=== PATIENT | female | born 1970 | race Caucasian/White ===

== ENCOUNTER 2024-03-03 08:11 | Emergency (ER) | payer BC, SELFPAY ==
[2024-03-03 08:12] VITALS: BP 161/97; PULSE 92; RESP 18; TEMP 36.9; O2SAT 98; BMI 33.4
--- NOTE | 2024-03-03 08:27 | PC.NURSE ---
Dr. Gordillo at [facility] for patient eval
[2024-03-03 08:30] VITALS: BP 146/92; PULSE 96; O2SAT 99
--- NOTE | 2024-03-03 08:35 | ED_ITS ---
Discharge Plan Disposition Patient Disposition: Home, Self-Care Prescriptions Prescriptions: New epinephrine [EpiPen 2-Av] 0.3 mg/0.3 mL auto-injector 0.3 mg IM Q10M PRN (Reason: anaphylaxis) Qty: 2 0RF Rx Instructions: for 2 doses Referrals Follow up/Referrals: Sohail Landeros [Primary Care Provider] - See instructions Activity Restrictions/Add. Instructions Additional Instructions/Restrictions: Your symptoms today were consistent with a systemic allergic reaction and we called anaphylaxis. As discussed please use your epinephrine pens at home if you have a recurrence of your symptoms specifically 32 organ systems involved such as your scan and your mucosal surfaces of your mouth or your respiratory tract like wheezing or shortness of breath. If that happens please call 911 or return to the emergency department. Also as discussed it is possible you will have a biphasic response which could have been many days after today's presentation but is unlikely. Lastly I highly recommend you follow-up with an diesel locomotive crane operator to get specific allergy testing. Clinical Impressions Clinical Impression: Anaphylaxis Print Language Print Language: Bahamian Discharge ED Provider: Jenny Gordillo General Adult HPI General Chief complaint: Allergic Reaction Stated complaint: allergic reaction/swelling in face Time Seen by Provider: 03/03/24 08:14 Mode of Arrival: Ambulatory Source of Information: Patient Limitations: No Limitations Description of Symptoms (Recalled from ER Triage Doc. by RN): c/o swollen face,ears, eyes and scratchy throat that started last night. Unknown if any interactions with new products History of Present Illness HPI narrative: 54-year-old female presenting today with concerns for an allergic reaction. She has a history of hyperlipidemia and prediabetes on rosuvastatin and metformin but no other medications other than vitamin D supplementation. She has no history of anaphylaxis in the past. However today she presents with an urticarial rash as well as swelling in her ears and her face and the mucosal s urface of her lips and scratchy throat. She denies any wheezing shortness of breath any gastrointestinal symptoms or cardiovascular symptoms. Her rash is pruritic she states. Related Data Previous Rx's ?Medication ?Instructions ?Recorded epinephrine 0.3 mg/0.3 mL 0.3 mg (0.3 mL) IM Q10M PRN 03/03/24 injection, auto-injector (EpiPen anaphylaxis #2 ea 2-Av) Allergies Allergy/AdvReac Type Severity Reaction Status Date / Time Sulfa (Sulfonamide Allergy Other Verified 03/03/24 08:27 Antibiotics) [facility] Disclaimer: The information contained in this section may have been updated after the patient was seen, as this information can be updated by other users. Social History Smoking Status: Never smoker alcohol intake: never current occupational status: other Travel in the last 8 weeks: None ROS Obtained: Yes All systems reviewed & no additional complaints except as documented Physical Exam General General appearance: alert ENT ENT exam: Present other (Upper lip and mucosal surface of the lip swollen) Respiratory Respiratory exam: Present normal lung sounds bilaterally Cardiovascular Cardiovascular exam: Present regular rate Neurological Exam Neurological exam: Present alert and oriented X3 Skin Skin exam: Present other (Diffuse and intermittent urticarial rash and swelling on the right side of her face and to her right ear that is edematous) Medical Decision Making Medical Records Screening: Per USPSTF and CDC recommendations, given the prevalence of disease in our region, it is our hospital?s policy to screen for HIV and viral Hepatitis for all patients aged 18 and over and those with ongoing risk factors. Robbie Inquiry Pt receiving controlled substance: No Robbie was queried for this patient: No Vital Signs: 03/03/24 08:12 03/03/24 08:30 Temperature 98.4 F Temperature Source Oral Pulse Rate 96 H Pulse Rate [Left Radial] 92 H Respiratory Rate 18 Blood Pressure 146/92 H Blood Pressure [Right Arm] 161/97 H Blood Pressure Mean 102 Blood Pressure Mean [Right Arm] 118 02 Sat by Pulse Oximetry 98 99 Oxygen Delivery Method Room Air Room Air Orders (Tests/Meds): ED MEDICATIONS Generic Name Dose Route Start Last Admin Trade Name Freq PRN Reason Stop Dose Admin Sodium Chloride 1,000 mls @ 999 mls/hr 03/03/24 08:30 03/03/24 08:38 Sod Chlor 0.9% 1000ml Bag IV 03/03/24 09:30 999 mls/hr .Q1H1M KALI Administration Sodium Chloride 8 ml 03/03/24 08:29 03/03/24 08:37 Sodium Chloride 0.9% 10ml Vial IV 04/02/24 08:28 8 ml NEEDED PRN Administration dilute pepcid Discontinued Medications Generic Name Dose Route Start Last Admin Trade Name Freq PRN Reason Stop Dose Admin Dexamethasone Sodium Phosphate 10 mg 03/03/24 08:29 03/03/24 08:37 Dexamethasone 4mg/Ml 1ml Vial IV 03/03/24 08:30 10 mg ONCE ONE Administration Diphenhydramine HCl 25 mg 03/03/24 08:03/03/24 08:38 Diphenhydramine 50mg/Ml Vial IV 03/03/24 08:30 25 mg ONCE ONE Administration Epinephrine HCl 0.3 mg 03/03/24 08:29 03/03/24 08:36 Epinephrine 1 Mg/Ml Ampul IM 03/03/24 08:30 0.3 mg ONCE ONE Administration Famotidine 20 mg 03/03/24 08:29 03/03/24 08:37 Famotidine 20mg/2ml Vial IV 03/03/24 08:30 20 mg ONCE ONE Administration Medical Decision Narrative: 54-year-old not an extremis or shock who presents today with what appears to be anaphylaxis involving mucosal surface of her lip as well as her skin with a urticarial rash that is pruritic. Will administer H1 and H2 blockade steroids as well as epinephrine IV fluids and will reassess. She is in place in ED observation. I will not hold onto her as biphasic reaction can come even many days later but will explain to her that this is a possibility. She will also be advised to follow-up with allergy specialty to have her allergens tested and will be sent home with EpiPen's and advised on how to use them. Reassessment 9:23 AM patient's symptoms have completely resolved she is very well-appearing I discussed with her the possibility of a biphasic response and that this could have been many days out there is no utility to holding her into the emergency department indefinitely. I recommended that she follow-up with an diesel locomotive crane operator to get specifically allergy tested and. I also recommended that she return with any significant worsening of her symptoms and advised her on how to use the EpiPen's and when to use them. She has been advised to continue to take an antihistamine which she takes Zyrtec daily. She was discharged in improved stable condition Critical Care Critical Care Time Critical Care Time: Yes Attestation: On 03/03/24, the high probability of a clinically significant, sudden or life threatening deterioration of the following system(s) required my full and direct attention, intervention and personal management. The time I documented below is in addition to time spent performing reported procedures but includes the following listed in this critical care notation. Total Time Total Critical Care Time: 35
[2024-03-03] MEDS: EPINEPHrine 1 MG/ML AMPUL 0.3 MG IM (08:36)
[2024-03-03] MEDS: DEXAMETHASONE 4MG/ML 1ML VIAL 10 MG IV (08:37)
[2024-03-03] MEDS: FAMOTIDINE 20MG/2ML VIAL 20 MG IV (08:37)
[2024-03-03] MEDS: SODIUM CHLORIDE 0.9% 10ML VIAL 8 ML IV (08:37)
[2024-03-03] MEDS: 0.9 % SODIUM CHLORIDE 1000ML 1,000 ML 999 ML IV (08:38)
[2024-03-03] MEDS: diphenhydrAMINE 50MG/ML VIAL 25 MG IV (08:38)
[2024-03-03 09:00] VITALS: BP 122/85; PULSE 97; O2SAT 99
--- NOTE | 2024-03-03 09:18 | PC.NURSE ---
Dr. Gordillo at [facility] for update on POC
[2024-03-03 09:26] VITALS: BP 122/85; PULSE 89; RESP 18; TEMP 36.9; O2SAT 100
[2024-03-03 09:30] VITALS: BP 160/96; PULSE 110; O2SAT 100
== END 2024-03-03 09:55 | disposition home or self-care (01) ==
PROVIDERS: Emergency Provider Student in an Organized Health Care Education/Training Program; PCP Pediatrics
DX: T78.2XXA Anaphylactic shock, unspecified, initial encounter (principal); R22.0 Localized swelling, mass and lump, head; R21 Rash and other nonspecific skin eruption
CPT/HCPCS: 96361; 96372; 96374; 96375; 99291; J0171; J1100; J1200; J7030; S0028